=== PATIENT | female | born 1975 | race Hispanic/Latino ===

== ENCOUNTER 2019-07-02 08:46 | Observation (INO) | payer OTHER ==
[~2019-07-02] VITALS: Ht 154.9 cm; Wt 82.1 kg
[2019-07-02] MEDS ORDERED: ACETAMINOPHEN 325 MG TAB PO STA (09:06)
[2019-07-02] MEDS ORDERED: ONDANSETRON HCL INJ 2MG/ML 2ML 2 MG/ML VIAL IV STA (09:06)
[2019-07-02] MEDS ORDERED: MORPHINE SULFATE 2 MG/ML SYR 1ML IV STA (09:06)
[2019-07-02] MEDS ORDERED: SODIUM CHLORIDE 0.9% 50ML 50 ML ONE (09:12)
[2019-07-02] MEDS ORDERED: IOPAMIDOL 370 MG/ML 200 ML INFUS..BTL INJ ONE (09:12)
[2019-07-02] MEDS: SODIUM CHLORIDE 0.9% 1000ML 1,000 ML IV SCH ×3 (09:20→13:15)
[2019-07-02] MEDS ORDERED: ONDANSETRON HCL INJ 2MG/ML 2ML 2 MG/ML VIAL ONE (09:22)
[2019-07-02] MEDS ORDERED: SODIUM CHLORIDE 0.9% 1000ML 1,000 ML ONE (09:23)
[2019-07-02] MEDS ORDERED: ACETAMINOPHEN 325 MG TAB ONE (09:23)
[2019-07-02] MEDS ORDERED: MORPHINE SULFATE INJ 4 MG/ML INJ 1ML ONE (09:23)
--- NOTE | 2019-07-02 10:20 | Diagnostic Imaging Report ---
CT of the abdomen and pelvis, with contrast. History: Right lower quadrant pain. Comparison: None available. Technique: Multidetector CT scanning of the abdomen and pelvis was performed from the level of the lung bases to the inferior pubic rami after intravenous administration of contrast. Coronal and sagittal multiplanar reformations were obtained. RADIATION DOSE: Total DLP: 686.97 mGy*cm Dose modulation, iterative reconstruction, and/or weight based adjustment of the mA/kV was utilized to reduce the radiation dose to as low as reasonably achievable. FINDINGS: The visualized lungs are unremarkable. The imaged portion of the heart demonstrates no significant abnormalities. The liver is normal in size and attenuation without evidence for focal abnormality. The gallbladder is unremarkable. There is no biliary ductal dilatation. The stomach, spleen, pancreas, and bilateral adrenal glands are unremarkable. Incidentally noted is a splenule adjacent to the spleen. The kidneys are normal in size and location and enhance symmetrically. There is no evidence for hydronephrosis. No ureteral dilatation or stone is appreciated. The urinary bladder demonstrates no significant abnormalities. The uterus and adnexa are grossly unremarkable. The abdominal aorta is normal course and caliber. The IVC is unremarkable. Please note evaluation the bowel is limited without the use of enteric contrast material. There is dilatation of the appendix measuring up to 1.2 cm in maximum diameter with associated wall thickening and adjacent fat stranding. There is no evidence for perforation or organized fluid collection to suggest abscess formation. The remaining visualized loops of small and large bowel demonstrate no evidence of obstruction or inflammation. There is no ascites or intraperitoneal free air. No abnormally enlarged lymph nodes are identified within the abdomen or pelvis. Tiny fat-containing umbilical hernia noted. The osseous structures demonstrate no evidence for acute fracture or destructive process. The extraperitoneal soft tissues are unremarkable. IMPRESSION: CT findings compatible with acute appendicitis. No evidence of perforation or abscess formation at this time. Findings were discussed with Dr. Herrera at 10:15 AM on 07/02/2019. Signed by: Dr. Zack Saavedra MD on 07/02/2019 10:17 AM
[2019-07-02] MEDS ORDERED: METRONIDAZOLE 500MG/NS 100ML 100 ML IV STA (10:21)
[2019-07-02] MEDS ORDERED: MORPHINE SULFATE 2 MG/ML SYR 1ML IV PRN (10:30)
[2019-07-02] MEDS ORDERED: LEVOFLOXACIN 500MG/D5W 100ML 100 ML IV ONE ×2 (10:30→10:41)
[2019-07-02] MEDS ORDERED: ONDANSETRON HCL INJ 2MG/ML 2ML 2 MG/ML VIAL IV PRN (10:30)
[2019-07-02] MEDS ORDERED: METRONIDAZOLE 500MG/NS 100ML 100 ML IV ONE (10:40)
--- NOTE | 2019-07-02 11:21 | NUR ---
[facility] called to transport pt to room 114.
--- NOTE | 2019-07-02 11:58 | NUR ---
Report to OCHOA Mattson [phone]
--- NOTE | 2019-07-02 12:30 | NUR ---
PT ARRIVED VIA STRETCHER, ASSISTED INTO BED, PT IS AMBULATORY, VS STABLE AND ADMISSION ASSESSMENT COMPLETED, PT WAS GIVEN GOWN AND ASSISTED INTO BED
[2019-07-02 12:49] VITALS: BP 108/75
[2019-07-02 12:50] VITALS: BP 108/75
[2019-07-02 13:00] VITALS: BP 108/75
--- OUTSIDE RECORDS SUMMARY | 2019-07-02 14:11 | XMS REPORT ---
[facility] Address Unknown Phone Unavailable Care Team Providers Care Reserve Operator Name Role Phone RUTH KRISHNA Unavailable Unavailable Problems This patient has no known problems. Allergies, Adverse Reactions, Alerts This patient has no known allergies or adverse reactions. Medications This patient has no known medications. Results Test Description Test Time Test Comments Text Results Atomic Results Result Comments CT ABD/PEL WITH CONTRAST-HOPD 2019-07-02 10:09:00 [place] [address] Patient Name: TIERRA BARRAGAN MR #: [id number] : 1975 Age/Sex: 44/F Req #: [id number] Adm Physician: Ordered by: RUTH KRISHNA MD Report #: [id number] Location: [facility] Room/Bed: Procedure: [id number] HOPD/CT ABD/PEL WITH CONTRAST-HOPD Exam Date: 07/02/19 Exam Time: 1000 REPORT STATUS: Signed CT of the abdomen and pelvis, with contrast. History: Right lower quadrant pain. Comparison: None available. Technique: Multidetector CT scanning of the abdomen and pelvis was performed from the level of the lung bases to the inferior pubic rami after intravenous administration of contrast. Coronal and sagittal multiplanar reformations were obtained. RADIATION DOSE: Total DLP: 686.97 mGy*cm Dose modulation, iterative reconstruction, and/or weight based adjustment of the mA/kV was utilized to reduce the radiation dose to as low as reasonably achievable. FINDINGS: The visualized lungs are unremarkable. The imaged portion of the heart demonstrates no significant abnormalities. The liver is normal in size and attenuation without evidence for focal abnormality. The gallbladder is unremarkable. There is no biliary ductal dilatation. The stomach, spleen, pancreas, and bilateral adrenal glands are unremarkable. Incidentally noted is a splenule adjacent to the spleen. The kidneys are normal in size and location and enhance symmetrically. There is no evidence for hydronephrosis. No ureteral dilatation or stone is appreciated. The urinary bladder demonstrates no significant abnormalities. The uterus and adnexa are grossly unremarkable. The abdominal aorta is normal course and caliber. The IVC is unremarkable. Please note evaluation the bowel is limited without the use of enteric contrast material. There is dilatation of the appendix measuring up to 1.2 cm in maximum diameter with associated wall thickening and adjacent fat stranding. There is no evidence for perforation or organized fluid collection to suggest abscess formation. The remaining visualized loops of small and large bowel demonstrate no evidence of obstruction or inflammation. There is no ascites or intraperitoneal free air. No abnormally enlarged lymph nodes are identified within the abdomen or pelvis. Tiny fat-containing umbilical hernia noted. The osseous structures demonstrate no evidence for acute fracture or destructive process. The extraperitoneal soft tissues are unremarkable. IMPRESSION: CT findings compatible with acute appendicitis. No evidence of perforation or abscess formation at this time. Findings were discussed with Dr. Krishna at 10:15 AM on 07/02/2019. Signed by: Dr. Zack Saavedra MD on 07/02/2019 10:17 AM Dictated By: ZACK SAAVEDRA MD [id number] Transcribed By: NOHEMI on 07/02/19 1017 COPY TO: RUTH KRISHNA MD
[2019-07-02] MEDS ORDERED: D5.45%NS/KCL 20MEQ 1,000 ML IV ONE (14:25)
[2019-07-02] MEDS: D5.45%NS/KCL 20MEQ 1,000 ML IV SCH ×2 (14:36→17:43)
[2019-07-02] MEDS ORDERED: METRONIDAZOLE 500MG/NS 100ML 100 ML IV SCH ×2 (15:00→18:00)
[2019-07-02] MEDS ORDERED: BUPIVACAINE 0.5%/EPI 30 ML SDV INJ ONE (15:19)
[2019-07-02] MEDS ORDERED: MULTIVITAMINS1 EAC7 PO (16:42)
[2019-07-02 16:45] VITALS: BP 105/64
[2019-07-02] MEDS ORDERED: FENTANYL CITRATE/PF 100MCG/2 ML INJ ONE (17:41)
[2019-07-02] MEDS ORDERED: MIDAZOLAM HCL 2 MG/2 ML VIAL ONE (17:41)
--- NOTE | 2019-07-02 18:12 | NUR ---
PT WHEELED OFF UNIT VIA BED FOR OR, NO CHANGE IN CONDITION , IV FLAGYL PULLED AND GIVEN TO OR NURSE
[2019-07-02] MEDS ORDERED: ACETAMINOPHEN 1000 MG/100 ML IV PRN (19:45)
[2019-07-02 20:00] VITALS: BP 119/66
[2019-07-02] MEDS: DEXTROSE 5%/LACTATED RINGERS 1,000 ML IV SCH (20:00)
--- NOTE | 2019-07-02 20:00 | NUR ---
received patient [facility]. patient is awake and talking. patient has been transferred into the bed. bed is in lowest position and call light is within reach. patient denies pain or discomfort at this time. Will continue to monitor patient.
--- NOTE | 2019-07-02 20:00 | Operative Report ---
DATE OF PROCEDURE: 07/02/2019 SURGEON: Jose F Mobley MD PREOPERATIVE DIAGNOSIS: Acute appendicitis. POSTOPERATIVE DIAGNOSIS: Acute appendicitis and left ovarian cyst. OPERATION PERFORMED: Laparoscopic appendectomy and drainage of left ovarian cyst. ANESTHESIA: General. COMPLICATIONS: None. ESTIMATED BLOOD LOSS: Minimal. DESCRIPTION OF PROCEDURE: With the patient lying in bed in the supine position under good general endotracheal anesthesia the abdomen was prepped with Betadine solution and draped in the usual manner. A Veress needle was introduced into the umbilicus and pneumoperitoneum was established without any difficulty. A 12 mm trocar was placed into the umbilicus and a 10 mm video laparoscope was placed into the intraabdominal cavity. Laparoscopy at this point revealed an acutely inflamed purulent appendix that was not ruptured. It was stuck to the anterior abdominal wall. There was some adhesions to the midline of the lower abdomen from the patient's previous C-sections. There was also an ovarian cyst which is probably on the left side, which was about 4 cm in size. This was a simple cyst. A 5 mm trocar was then placed in the right suprapubic region and another 5 mm trocar was placed in the left upper abdomen. The base of the appendix was then slowly and carefully dissected and the mesentery of the appendix was then divided with two applications of the Endo-DARLING vascular stapler. Hemostasis was ascertained. The base of the appendix was then divided with another application of the Endo-DARLING stapler. The appendix was placed in a pouch and removed through the umbilicus without any difficulty. Video laparoscopy was then again carried out. Hemostasis was ascertained. The whole area was then thoroughly irrigated and all the excess fluid was aspirated including all the fluid that was in the pelvis. At this point, the left ovarian cyst was then opened up and resected and drained without any difficulty. Hemostasis was ascertained and all the excess fluid was aspirated. The pneumoperitoneum was evacuated and all the trocars were removed under direct vision. The midline fascia of the umbilicus was then closed with a [id number] of 0 Vicryl. All layers were infiltrated on the way out with solution of 0.25% Marcaine. Subcutaneous tissue was approximated with 3-0 Vicryl and the skin was closed with subcuticular 5-0 Vicryl. Benzoin, Steri-Strips and Band-Aids were applied. The sponge, lap, and needle counts were correct. The patient tolerated the procedure well and returned to the recovery room in stable condition. MD MAEVE Ferro/DENISHA /[id number]
--- NOTE | 2019-07-02 20:30 | NUR ---
patient has been assisted out of the bed and into the restroom. Patient is not able to void at this time. patient will try again later.
[2019-07-02] MEDS: CEFOXITIN 1GM/ D5W 50ML 50 ML IV SCH (23:49)
[2019-07-03] MEDS: ONDANSETRON HCL INJ 2MG/ML 2ML 2 MG/ML VIAL IV PRN ×2 (00:12→05:48)
[2019-07-03] MEDS: HYDROMORPHONE 1MG/1ML INJ IV PRN ×2 (00:12→05:47)
[2019-07-03 01:13] VITALS: BP 119/66
[2019-07-03 04:00] VITALS: BP 113/67
[2019-07-03] MEDS: CEFOXITIN 1GM/ D5W 50ML 50 ML IV SCH ×2 (05:47→12:26)
[2019-07-03 06:07] LABS: BASOPHILS % 0.2 % (0.0-1.0); EOSINOPHILS % 0.1 % (0.0-6.0); HEMATOCRIT 39.2 % (34.2-44.1); HEMOGLOBIN 13.2 g/dL (12.0-16.0); LYMPHOCYTES # (AUTO) 1.5 (1.0-3.2); LYMPHOCYTES % 12.3 % (18.0-39.1); MEAN CORPUSCULAR HEMOGLOBIN 29.4 pg (28-32); MEAN CORPUSCULAR HGB CONC 33.7 g/dL (31-35); MEAN CORPUSCULAR VOLUME 87.3 fL (81-99); MONOCYTES # (AUTO) 0.6 (0.2-0.8); MONOCYTES % 4.9 % (4.4-11.3); NEUTROPHILS % 82.1 % (38.7-80.0); PLATELET COUNT 303 x10e3/uL (140-360); RED BLOOD COUNT 4.49 x10e6/uL (3.6-5.1); RED CELL DISTRIBUTION WIDTH 12.6 % (11.7-14.4)
[2019-07-03 06:29] LABS: ANION GAP 7.7 mmol/L (8-16); BLOOD UREA NITROGEN 7 mg/dL (7-26); BUN/CREATININE RATIO 11 (6-25); CALCIUM 8.7 mg/dL (8.4-10.2); CARBON DIOXIDE 25 mmol/L (22-29); CHLORIDE 109 mmol/L (98-107); CREATININE, SERUM 0.62 mg/dL (0.57-1.11); EST GLOMERULAR FILTRATION RATE > 60 ML/MIN (60-); GLUCOSE 132 mg/dL (74-118); POTASSIUM 3.7 mmol/L (3.5-5.1); SODIUM 138 mmol/L (136-145)
[2019-07-03] MEDS: DEXTROSE 5%/LACTATED RINGERS 1,000 ML IV SCH ×2 (06:40→16:00)
--- NOTE | 2019-07-03 07:00 | NUR ---
REPORT RECEIVED, WALKING ROUNDS PERFORMED, PT RESTING QUIETLY IN BED, CALL LIGHT WITH IN REACH
--- NOTE | 2019-07-03 07:11 | NUR ---
REPORT GIVEN TO DAY NURSE. PATIENT IS RESTING COMFORTABLY IN THE BED. BED IS IN THE LOWEST POSITION AND CALL LIGHT IS WITHIN REACH.
[2019-07-03 08:07] VITALS: BP 118/74
[2019-07-03 08:42] VITALS: BP 118/74
[2019-07-03] MEDS: HYDROCODONE/APAP 7.5MG-325MG 1 EA TAB PO PRN ×2 (12:29→17:22)
[2019-07-03 13:03] VITALS: BP 98/70
[2019-07-03 16:10] VITALS: BP 110/68
--- NOTE | 2019-07-03 17:01 | NUR ---
DR Aura BREWER HERE TO MAKE ROUNDS, OK TO DISCHARGE PATIENT HOME
[2019-07-03] MEDS ORDERED: TYLENOL WITH C1 EACH PO (17:17)
[2019-07-03] MEDS ORDERED: LEVAQUIN500 MG PO (17:18)
[2019-07-03] MEDS ORDERED: ROCURONIUM BROMIDE 10 MG/ML 5ML VIAL IV ONE (17:22)
[2019-07-03] MEDS ORDERED: KETOROLAC TROMETHAMINE 30 MG/ML VIAL ONE (17:22)
[2019-07-03] MEDS ORDERED: LIDOCAINE HCL 2% LOCAL INJ 5 ML SDV VIAL INJ ONE (17:22)
[2019-07-03] MEDS ORDERED: ONDANSETRON HCL INJ 2MG/ML 2ML 2 MG/ML VIAL ONE (17:22)
[2019-07-03] MEDS ORDERED: DEXAMETHASONE SOD PHOS INJ 4 MG/ML VIAL ONE (17:22)
[2019-07-03] MEDS ORDERED: PROPOFOL IV EMULSION 10 MG/ML 20 ML VIAL ONE (17:22)
[2019-07-03] MEDS ORDERED: SEVOFLURANE INHAL SOLN 250 ML PEN BTL ONE (17:22)
== END 2019-07-03 18:33 | disposition home or self-care (01) ==
LOC: FSED 08:46 → ERHOLD 10:21 → FSED 12:10 → MED/SURG 14:11
PROVIDERS: ADMIT Surgery; ATTEND Surgery
DX: K35.80 Unspecified acute appendicitis (principal); N83.292 Other ovarian cyst, left side
CPT/HCPCS: 36415; 44970; 49322; 74177; 80048 ×2; 80076; 81025; 83605; 84484; 85025 ×2; 87040; 88304; 96361 ×2; 96374; 96375; 99284; C1766; G0378 ×2; J1100; J1170 ×2; J1885; J1956; J2001; J2250; J2270 ×2; J2405 ×2; J2704; J3010; J7030; J7121 ×2; Q9967